=== PATIENT | male | born 1970 | race Hispanic/Latino ===

== ENCOUNTER 2016-11-25 00:28 | Inpatient (IN) | payer OTHER ==
--- NOTE | 2016-11-25 00:52 | ED PDOC ---
HPI: Psych/Substance Abuse Time Seen by Provider: 11/25/16 00:36 Chief Complaint (Nursing): Psychiatric Evaluation Chief Complaint (Provider): intentional overdose History Per: Patient, EMS Additional History Per: Patient, EMS Additional Complaint(s): 46 y/o male history of anxiety, depression, hypertension brought in by EMS for overdose. Patient states he drank alcohol and took 16 Trazodone tablets approx 1.5 hours before arrival to ED. Patient states he did this because "life sucks ". HPI limited due to patient current state of intoxication. Past Medical History Reviewed: Historical Data, Nursing Documentation, Vital Signs Vital Signs: Last Vital Signs Temp 97.2 F L 11/25/16 00:35 Pulse 118 H 11/25/16 00:35 Resp 18 11/25/16 00:35 BP 166/100 H 11/25/16 00:35 Pulse Ox 97 11/25/16 00:35 - Medical History PMH: Anxiety, HTN - Family History Family History: States: Unknown Family Hx - Home Medications Home Medications: Ambulatory Orders Medication Instructions Recorded Alprazolam [Xanax] 1 tab PO Q8 PRN #5 tab 01/30/15 ALPRAZolam [Xanax] 0.5 mg PO DAILY PRN #10 tab 10/03/15 - Allergies Allergies/Adverse Reactions: Allergies Allergy/AdvReac Type Severity Reaction Status Date / Time No Known Allergies Allergy Verified 01/30/15 15:46 Review of Systems Review Of Systems: ROS cannot be obtained secondary to pt's inabilty to answer questions. Physical Exam - Reviewed Nursing Documentation Reviewed: Yes Vital Signs Reviewed: Yes - Physical Exam Appears: Positive for: Well, Non-toxic, No Acute Distress Head Exam: Positive for: ATRAUMATIC, NORMAL INSPECTION, NORMOCEPHALIC Skin: Positive for: Normal Color Eye Exam: Positive for: EOMI, PERRL ENT: Positive for: Normal ENT Inspection Cardiovascular/Chest: Positive for: Regular Rate, Rhythm Respiratory: Positive for: Normal Breath Sounds Back: Positive for: Normal Inspection Extremity: Positive for: Normal ROM Neurologic/Psych: Positive for: Alert, Oriented, Other (slurred speech) - Laboratory Results Result Diagrams: 11/25/16 01:12 11/25/16 01:12 - ECG ECG: Positive for: Viewed By Me (reviewed by ED attending) ECG Rhythm: Positive for: Sinus Tachycardia (105bpm) O2 Sat by Pulse Oximetry: 97 Pulse Ox Interpretation: Normal - Radiology X-Ray: Viewed By Me X-Ray Interpretation: No Acute Disease ED OBSERVATION Date of observation admission: 11/25/16 Time of observation admission: 01:56 - Observation admission statement Patient is being placed in observation because:: intentional overdose - Goals of Observation Goals of observation are:: observation, supportive care - Progress Note Progress Note: 11/25/16 01:56 Patient sleeping; arousable to tactile stimuli 11/25/16 4:00 Patient sleeping; arousable to tactile stimuli. No distress. Disposition - Clinical Impression Clinical Impression: Suicide attempt by drug ingestion, Alcohol intoxication - Patient ED Disposition Is Patient to be Admitted: No - Disposition Disposition: Transfer of Care Disposition Time: 05:24 Condition: STABLE Patient Signed Over To: Valentin Murrieta Handoff Comments: pending re-eval, crisis eval
[2016-11-25 01:16] LABS: BASO # 0.1 K/uL (0.0-0.2); BASO % 1.1 % (0.0-2.0); EOS # 0.2 K/uL (0.0-0.7); EOS % 1.8 % (0.0-4.0); HEMATOCRIT 42.9 % (35.0-51.0); LYMPH # 2.9 K/uL (1.0-4.3); LYMPH % 28.9 % (20.0-40.0); MEAN CELL VOLUME 92.9 fl (80.0-94.0); MEAN CORPUSCULAR HEMOGLOBIN 32.1 pg (27.0-31.0); MEAN CORPUSCULAR HGB CONC 34.6 g/dL (33.0-37.0); MEAN PLATELET VOLUME 7.9 fl (7.2-11.7); MONO # 0.7 K/uL (0.0-0.8); MONO % 7.2 % (0.0-10.0); NEUT # 6.1 K/uL (1.8-7.0); NRBC % 0.1 % (0.0-0.0); RED CELL DISTRIBUTION WIDTH 13.2 % (11.5-14.5)
[2016-11-25 01:30] LABS: ALB/GLOB RATIO 1.3 (1.0-2.1); ALCOHOL SERUM 286 mg/dl (0-10); ALKALINE PHOSPHATASE 78 U/L (38-126); ALT/SGPT 37 U/L (21-72); AST/SGOT 35 U/L (17-59); BILIRUBIN,TOTAL 0.2 mg/dl (0.2-1.3); BLOOD UREA NITROGEN 11 mg/dl (9-20); CALCIUM 9.1 mg/dL (8.4-10.2); CARBON DIOXIDE 22 mmol/L (22-30); CHLORIDE 103 mmol/L (98-107); GFR AFRICAN-AMERICAN > 60; GLUCOSE,RANDOM 140 mg/dL (75-110); POTASSIUM 3.2 MMOL/L (3.6-5.0); SODIUM 141 mmol/l (132-148); TOTAL PROTEIN 7.3 G/DL (6.3-8.2)
[2016-11-25] MEDS ORDERED: Potassium Chloride 20 mEq ER Tab PO ONE ×2 (01:44→06:47)
[2016-11-25] MEDS ORDERED: Sodium Chloride 0.9% 1,000 ML IV STA (05:35)
--- NOTE | 2016-11-25 06:01 | ED PDOC ---
- Laboratory Results Result Diagrams: 11/25/16 01:12 11/25/16 01:12 - ECG O2 Sat by Pulse Oximetry: 97 Medical Decision Making Medical Decision Making: Case endorsed from Olman Khan PA-C at 0600 pending re-eval and crisis eval. Case endorsed to Dr. Franco at 0700 pending re-eval and crisis eval. Scribe Attestation: Documented by Vicki Cardenas acting as a scribe for Valentin Murrieta MD. Provider Scribe Attestation: All medical record entries made by the Scribe were at my direction and personally dictated by me. I have reviewed the chart and agree that the record accurately reflects my personal performance of the history, physical exam, medical decision making, and the department course for this patient. I have also personally directed, reviewed, and agree with the discharge instructions and disposition. Disposition - Clinical Impression Clinical Impression: Suicide attempt by drug ingestion, Alcohol intoxication - POA Present On Arrival: None - Disposition Disposition: Transfer of Care Disposition Time: 07:00 Condition: STABLE Patient Signed Over To: Adin Franco Handoff Comments: pending re-eval and crisis eval
--- NOTE | 2016-11-25 07:39 | CARD ---
APPROVED REPORT EKG Measurement Heart [id number] <Conclusion> Sinus tachycardia Otherwise normal ECG
--- NOTE | 2016-11-25 08:03 | ED PDOC ---
- Laboratory Results Result Diagrams: 11/25/16 01:12 11/25/16 01:12 - ECG O2 Sat by Pulse Oximetry: 96 Medical Decision Making Medical Decision Making: Time:0700 Patient signed out by Dr. Murrieta pending crisis, patient has been medically cleared by him. Time: 0850 Patient admitted to [facility] for depression by Dr.Trota Dacosta Attestation: Documented by Vanesa Bacon acting as a scribe for Adin Franco MD MD Scribe Attestation: All medical record entries made by the Scribe were at my direction and personally dictated by me. I have reviewed the chart and agree that the record accurately reflects my personal performance of the history, physical exam, medical decision making, and the department course for this patient. I have also personally directed, reviewed, and agree with the discharge instructions and disposition. Disposition - Clinical Impression Clinical Impression: Depression - POA Present On Arrival: None - Disposition Disposition: Admitted as In-Patient Disposition Time: 08:55 Condition: STABLE
[2016-11-25 10:01] VITALS: O2SAT 98
[2016-11-25 10:03] LABS: RBC URINE < 1 /hpf (0-3); URINE BILIRUBIN NEGATIVE (NEGATIVE); URINE BLOOD NEGATIVE (NEGATIVE); URINE COLOR YELLOW (YELLOW); URINE GLUCOSE (UA) NEG (Normal); URINE KETONE NEGATIVE (NEGATIVE); URINE LEUKOCYTE ESTERASE NEG Leu/uL (Negative); URINE PROTEIN NEGATIVE (NEGATIVE); URINE UROBILINOGEN 0.2-1.0 mg/dL (0.2-1.0); WBC URINE 1 /hpf (0-5)
--- NOTE | 2016-11-25 12:09 | RAD ---
HISTORY: Overdose. Technique: Single view portable erect @ 05:42. COMPARISON: 02/23/2016. FINDINGS: LUNGS: No active pulmonary disease. PLEURA: No significant pleural effusion identified, no pneumothorax apparent. CARDIOVASCULAR: Normal. OSSEOUS STRUCTURES: No significant abnormalities. VISUALIZED UPPER ABDOMEN: Normal. OTHER FINDINGS: None. IMPRESSION: No active disease. No significant interval change compared to the prior examination(s).
[2016-11-25] MEDS ORDERED: Magnesium Hydroxide Susp 30 ml UD PO PRN (12:31)
[2016-11-25] MEDS ORDERED: DiphenhydrAMINE 50 mg/ml Inj IM PRN (12:31)
[2016-11-25] MEDS ORDERED: Alum-Mag Hydrox-Simethicone Susp (30 mL) PO PRN (12:31)
--- NOTE | 2016-11-25 13:08 | PCM.PSYCH ---
Initial Psychiatric Evaluation - Initial Psychiatric Evaluation Type of Admission: Voluntary Legal Status: Capacity Chief Complaint (in patient's own words): i need to lie down Patient's Reaction to Hospitalization: ambivalent History of Present Illness and Precipitating Events: 46 yo male, alcohol dependence, history of bipolar 2 disorder. pt is presenting after an overdose of trazodone while intoxicated. he states he had argued with his and "i'm not sure why i did it...i guess i just wanted to prove something to her...i don't know." he reports he sees dr. ramirez in [place] and had a 3 month period of sobriety up until the middle of september. he indicates now he wants to change medications as he feels he may be depressed. he does not want any inpt rehab treatment. Current Medications: Active Medications Generic Name Dose Route Start Last Admin Trade Name Freq PRN Reason Stop Dose Admin Acetaminophen 650 mg 11/25/16 12:31 Tylenol 325mg Tab PO Q4 PRN Pain, moderate (4-7) Al Hydrox/Mg Hydrox/Simethicone 30 ml 11/25/16 12:31 Maalox Plus 30 Ml PO Q4 PRN Dyspepsia Diphenhydramine HCl 50 mg 11/25/16 12:31 Benadryl PO Q6 PRN Extrapyramidal Symptoms Diphenhydramine HCl 50 mg 11/25/16 12:31 Benadryl IM Q6 PRN Extrapyramidal S/S Unable PO Enalapril Maleate 10 mg 11/25/16 10:15 11/25/16 10:04 Vasotec PO 10 mg DAILY ABBY Administration Gabapentin 300 mg 11/25/16 17:00 Neurontin PO BIDHS ABBY Haloperidol 5 mg 11/25/16 12:31 Haldol PO Q4 PRN Agitation Haloperidol Lactate 5 mg 11/25/16 12:31 Haldol IM Q4 PRN Agitation, Unable to Take PO Lorazepam 1 mg 11/25/16 17:00 Ativan PO BIDHS ABBY Lorazepam 2 mg 11/25/16 12:31 Ativan PO Q4 PRN Anxiety/Agitation Lorazepam 2 mg 11/25/16 12:31 Ativan IM Q4 PRN Anxiety/Agitation,Unable PO Magnesium Hydroxide 30 ml 11/25/16 12:31 Milk Of Magnesia PO HS PRN Constipation Nicotine 1 patch 11/25/16 13:15 Nicoderm Cq TD DAILY ABBY Venlafaxine HCl 150 mg 11/25/16 12:45 Effexor Xr PO DAILY ABBY Past Psychiatric History - Past Psychiatric History Previous Treatment History: Inpatient Prior Professional Help: ? [facility], ? outpt substance abuse treatment. was at [facility] in History of Abuse: denies History of ETOH/Drug Use: smokes 1 pack of cigarettes daily, drinks alcohol daily- 2-3 pints daily. denies other substances use History of Family Illness: denies Pertinent Medical Hx (Current Medical&Sleep Prob, Allergies): Allergies Allergy/AdvReac Type Severity Reaction Status Date / Time No Known Allergies Allergy Verified 11/25/16 08:47 RX: Enalapril Maleate [Vasotec] 1 tab PO DAILY 11/25/16 RX: Gabapentin [Neurontin] 1 tab PO DAILY 11/25/16 Venlafaxine [Effexor XR] 1 tab PO DAILY 11/25/16 Review of Systems - Psychiatric Psychiatric: As Per [facility] Mental Status Examination - Personal Presentation Personal Presentation: Looks stated age - Affect Affect: Constricted - Motor Activity Motor Activity: Calm - Reliability in Providing Information Reliability in Providing Information: Fair - Speech Speech: Organized - Mood Mood: Depressed, Anxious - Formal Thought Process Formal Thought Process: No Impairment - Obsessions/Compulsions Obsessions: No Compulsions: No - Cognitive Functions Orientation: Person, Place, Situation, Time Sensorium: Alert Attention/Concentration: Attentive Abstract Thinking: [place] Estimate of Intelligence: Average Judgement: Intact, as evidence by: Insight regarding need for hospitalization Memory: Recent intact, as evidence by: Ability to recall events of the day, Remote intact, as evidenced by: Abilit to recall sig. life events - Risk Risk: Suicidal, Diminished functioning (denies any suicidal intent/plan) - Strength & Assets Inventory Strength & Assets Inventory: Intelligence DSM 5 DX - DSM 5 DSM 5 Diagnosis: alcohol dependence in withdrawal uncomplicated bipolar 2 disorder - Recommended/Plan of Treatment Treatment Recommendations and Plan of Treatment: admit to [facility] for safety and observation gather collateral information provide supportive therapy consult dr. mckeon for medical issues adjust medications-ativan for etoh withdrawal, restart effexor to prevent discontinuation problems. will discuss med changes with pt tomorrow disposition planning Projected ELOS: 3-5 days Prognosis: fair - Smoking Cessation Smoking Cessation Initiated: Yes
[2016-11-25] MEDS: Venlafaxine 150 mg ER Cap PO SCH (17:40)
--- NOTE | 2016-11-25 20:19 | CP.PCM.HP ---
History of Present Illness - History of Present Illness History of Present Illness: 46 yo with hx of Alcohol/ cocaine abuse Bipolar disorder HTN ED admitted for drug overdose with trazadone Present on Admission - Present on Admission Any Indicators Present on Admission: No Past Patient History - Past Social History Smoking Status: Heavy Smoker > 10 Cigarettes Daily - CARDIAC Hx Cardiac Disorders: No Hx Hypertension: Yes - PULMONARY Hx Tuberculosis: No - NEUROLOGICAL HX Cerebrovascular Accident: No Hx Seizures: No - HEMATOLOGICAL/ONCOLOGICAL Hx Cancer: No Hx Human Immunodeficiency Virus (HIV): No - GENITOURINARY/GYNECOLOGICAL Hx Sexually Transmitted Disorders: No - PSYCHIATRIC Hx Anxiety: Yes Hx Depression: Yes Hx Substance Use: Yes - SURGICAL HISTORY Hx Surgeries: Yes Hx Breast Biopsy: Yes Hx Orthopedic Surgery: Yes (RT ELBOW) - ANESTHESIA Hx Anesthesia: Yes Hx Anesthesia Reactions: No Meds Allergies/Adverse Reactions: Allergies Allergy/AdvReac Type Severity Reaction Status Date / Time No Known Allergies Allergy Verified 11/25/16 08:47 Physical Exam - Respiratory Exam Respiratory Exam: NORMAL BREATHING PATTERN - Cardiovascular Exam Cardiovascular Exam: REGULAR RHYTHM - GI/Abdominal Exam GI & Abdominal Exam: Normal Bowel Sounds Results - Vital Signs Recent Vital Signs: Last Vital Signs Temp 98.2 F 11/25/16 17:08 Pulse 103 H 11/25/16 17:08 Resp 20 11/25/16 17:08 BP 152/108 H 11/25/16 17:08 Pulse Ox 98 11/25/16 10:00 - Labs Result Diagrams: 11/25/16 01:12 11/25/16 01:12 Labs: Laboratory Results - last 24 hr 11/25/16 09:42 Urine Color Yellow Urine Clarity Clear Urine pH 6.0 Ur Specific [place] 1.011 Urine Protein Negative Urine Glucose (UA) Neg Urine Ketones Negative Urine Blood Negative Urine Nitrate Negative Urine Bilirubin Negative Urine Urobilinogen 0.2-1.0 Ur Leukocyte Esterase Neg Urine RBC (Auto) < 1 Urine Microscopic WBC 1 Urine Opiates Screen Negative Urine Methadone Screen Negative Ur Barbiturates Screen Negative Ur Phencyclidine Scrn Negative Ur Amphetamines Screen Negative U Benzodiazepines Scrn Negative U Oth Cocaine Metabols Negative U Cannabinoids Screen Negative Assessment & Plan - Assessment and Plan (Free Text) Assessment: Drug overdose with trazadone HX Alcohol/ cocaine abuse Bipolar disorder Psych Poison control called HTN ED IZAIAH Norvasc - Date & Time Date: 11/25/16 Time: 22:22
[2016-11-26] MEDS: Venlafaxine 150 mg ER Cap PO SCH (08:46)
[2016-11-26 08:57] LABS: BLOOD UREA NITROGEN 10 mg/dl (9-20); CALCIUM 8.9 mg/dL (8.4-10.2); CARBON DIOXIDE 28 mmol/L (22-30); CHLORIDE 106 mmol/L (98-107); GFR AFRICAN-AMERICAN > 60; GLUCOSE,RANDOM 88 mg/dL (75-110); POTASSIUM 3.9 MMOL/L (3.6-5.0); SODIUM 138 mmol/l (132-148)
[2016-11-26 09:29] LABS: T4 4.89 ug/dl (5.5-11.0)
[2016-11-26 09:43] LABS: THYROID STIMULATING HORMONE 0.85 mIU/ML (0.46-4.68)
--- NOTE | 2016-11-26 10:54 | PCM.PYCHPN ---
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 pt focused on complaining about , stating he needs to work and is minimizing his need to get treatment for alcohol dependence. he states his "would never let me off the hook" if he went to rehab and implies that he would not be able to afford his housing if he was not returning to work. he continues to deny he wanted to kill himself, but that he just wanted to "teach my a lesson." he is restless, tremulous. no confusion or agitation. Medication Change: Yes (lower effexor) Medical Record Reviewed: Yes Mental Status Examination - Cognitive Function Orientation: Person, Place, Situation, Time Attention: WNL Concentration: WNL Association: WNL Fund of Knowledge: WN Decription of patient's judgement and insights: fair - Mood Mood: Depressed, Anxious - Affect Affect: Constricted - Speech Speech: Appropriate - Formal Thought Process Formal Thought Process: No Impairment - Suicidal Ideation Suicidal Ideation: No Plan: denies suicidal thoughts - Homicidal Ideation Homicidal Ideation: No Goal/Treatment Plan - Goal/Treatment Plan Need for Continued Stay: Remain at risks for inpatient hospitalization, Discharge may exacerbated symptoms Progress Toward Problem(s) and Goals/Treatment Plan: alcohol dependence major depression recurrent will continue to treat with ativan for detox from alcohol lower effexor xr- pt feels dose is too high t/c changing to another antidepressant refer to outpatient substance abuse treatment/ outpaient therapy Estimated Date of D/C: 11/30/16 - Smoking Cessation Smoking Cessation Initiated: Yes
--- NOTE | 2016-11-26 20:53 | CP.PCM.PN ---
Subjective - Date & Time of Evaluation Date of Evaluation: 11/26/16 Time of Evaluation: 22:22 (Above noted) - Subjective Subjective: Above noted Doing better Objective - Vital Signs/Intake and Output Vital Signs (last 24 hours): Temp Pulse Resp BP Pulse Ox 97.7 F 87 18 160/90 H 98 11/26/16 10:00 11/26/16 10:00 11/26/16 10:00 11/26/16 10:00 11/25/16 10:00 - Medications Medications: Current Medications Acetaminophen (Tylenol 325mg Tab) 650 mg PO Q4 PRN PRN Reason: Pain, moderate (4-7) Al Hydrox/Mg Hydrox/Simethicone (Maalox Plus 30 Ml) 30 ml PO Q4 PRN PRN Reason: Dyspepsia Amlodipine Besylate (Norvasc) 5 mg PO DAILY [facility] Stop: 12/02/16 09:00 Last Admin: 11/26/16 08:45 Dose: 5 mg Diphenhydramine HCl (Benadryl) 50 mg PO Q6 PRN PRN Reason: Extrapyramidal Symptoms Diphenhydramine HCl (Benadryl) 50 mg IM Q6 PRN PRN Reason: Extrapyramidal S/S Unable PO Enalapril Maleate (Vasotec) 10 mg PO DAILY [facility] Last Admin: 11/26/16 08:46 Dose: 10 mg [facility]) [facility] Last Admin: 11/26/16 16:21 Dose: 300 mg Haloperidol (Haldol) 5 mg PO Q4 PRN PRN Reason: Agitation Haloperidol Lactate (Haldol) 5 mg IM Q4 PRN PRN Reason: Agitation, Unable to Take PO [facility]epam ([facility]ivan) [facility] Last Admin: 11/26/16 16:21 Dose: 1 mg Lorazepam (Ativan) 2 mg PO Q4 PRN PRN Reason: Anxiety/Agitation Lorazepam (Ativan) 2 mg IM Q4 PRN PRN Reason: Anxiety/Agitation,Unable PO Magnesium Hydroxide (Milk Of Magnesia) 30 ml PO HS PRN PRN Reason: Constipation Nicotine (Nicoderm Cq) 1 patch TD DAILY [facility] Last Admin: 11/26/16 08:45 Dose: 1 patch Venlafaxine HCl (Effexor Xr) 37.5 mg PO DAILY [facility] Venlafaxine HCl (Effexor Xr) 75 mg PO DAILY ABBY - Labs Labs: 11/26/16 08:31 - Respiratory Exam Respiratory Exam: NORMAL BREATHING PATTERN - Cardiovascular Exam Cardiovascular Exam: REGULAR RHYTHM - GI/Abdominal Exam GI & Abdominal Exam: Normal Bowel Sounds Assessment and Plan - Assessment and Plan (Free Text) Assessment: Drug overdose with trazadone HX Alcohol/ Cocaine abuse Bipolar disorder Psych Poison control called HTN (ED) on effexor Increase IZAIAH Norvasc
[2016-11-27] MEDS ORDERED: Venlafaxine 75 mg ER Cap PO SCH (09:00)
[2016-11-27] MEDS ORDERED: Venlafaxine 37.5 mg ER Cap PO SCH (09:00)
[2016-11-27 09:21] VITALS: TEMP 97.3
--- NOTE | 2016-11-27 12:33 | PCM.PYCHDC ---
Mental Status Examination - Mental Status Examination Orientation: Person, Place, Situation, Time Memory: Intact Mood: Anxious Affect: Broad Speech: Appropriate Attention: WNL Concentration: WNL Association: WNL Fund of Knowledge: WNL Formal Thought Process: No Impairment Description of patient's judgement and insight: fair Psychotic Thoughts and Behaviors: denies a/v hallucinations Suicidal Ideation: No Current Homicidal Ideation?: No Plan: pt denies any suicidal or homicidal thoughts/plan or intent Discharge Summary - Discharge Note Reason for Hospitalization: pt took an overdose of trazodone while intoxicated Psychiatric History (includes Medical, Family, Personal Hx): history of alcohol dependence Laboratory Data: Abnormal Lab Results 11/26/16 08:31 Hemoglobin A1c 5.7 RPR Nonreactive Consultations:: List each consultation separately and include: 1. Reason for request. 2. Findings. 3. Follow-up Consultations: followed by dr. mckeon Summary of Hospital Course include:: 1. Description of specific treatment plan utilized for patients during their course of treatmen. 2. Summarize the time- course for resolution of acute symptoms and/or regressed behaviors. 3. Describe issues identified and worked on during hospitalization. 4. Describe medication utilized. 5. Describe medical problems identified and treated. 6. Reassessment of suicide risk Summary of Hospital Course: 46 yo male, alcohol dependence, history of bipolar 2 disorder. pt is presenting after an overdose of trazodone while intoxicated. he states he had argued with his and "i'm not sure why i did it...i guess i just wanted to prove something to her...i don't know." he reports he sees dr. ramirez in [place] and had a 3 month period of sobriety up until the middle of september. he indicates now he wants to change medications as he feels he may be depressed. he does not want any inpt rehab treatment. pt was admitted to [facility] and oriented to the unit. pt was seen by his pcp, dr. mckeon. he was started on ativan to prevent alcohol withdrawal complications. he was started on his norvasc and started on effexor. the dose of effexor was lowered as did not find it was effective and he also has a history of htn. pt has a psychiatrist in the community and pt is refusing to stay in the hospital. pt states he only took the medicine to "teach my a lesson" and states he has no intention to harm himself. the patient signed a 48 hour notice. we discussed the risks of leaving the hospital- untreated alcohol withdrawal which could result in confusion/seizures and other life threatening conditions. the benefits of staying- treating depression, htn and preventing withdrawal complications- were discussed with pt. he signed out against medical advice after this discussion. dr. mckeon was aware of pt's elevated blood pressure. pt was denying suicidal or homicidal thoughts at the time of discharge. - Final Diagnosis (DSM 5) Condition upon Discharge: STABLE DSM 5: alcohol dependence major depression recurrent Disposition: AGAINST MEDICAL ADVICE Follow-up Treatment Plan: pt left against medical advice pt has outpatient appointments pt to call 911 if any suicidal or homicidal thoughts pt to start attending AA meetings - Smoking Cessation Smoking Cessation Medication prescribed: No Reason for not providing: declined - Antipsychotic Medications Pt discharged on 2 or more routine antipsychotic medications: No
[2016-11-27 14:24] VITALS: RESP 20
[2016-11-27 14:28] VITALS: BP 160/98; PULSE 100
--- NOTE | 2016-11-27 19:20 | CP.PCM.PN ---
Subjective - Date & Time of Evaluation Date of Evaluation: 11/27/16 Time of Evaluation: 22:22 - Subjective Subjective: Above noted Objective - Vital Signs/Intake and Output Vital Signs (last 24 hours): Temp Pulse Resp BP Pulse Ox 97.3 F L 100 H 20 160/98 H 98 11/27/16 09:21 11/27/16 14:27 11/27/16 14:27 11/27/16 14:27 11/25/16 10:00 - Labs Labs: 11/26/16 08:31 Assessment and Plan - Assessment and Plan (Free Text) Assessment: Drug overdose with trazadone HX Alcohol/ Cocaine abuse Bipolar disorder Psych Poison control called HTN (ED) on effexor Increase IZAIAH Norvasc
== END 2016-11-27 15:09 | disposition left against medical advice (07) | DRG 885 ==
LOC: H.ER 00:28 → H.EROBSV 01:55 → H.ERHOLD 08:56 → OBSVTOIN 08:56 → H.PSYCH 12:20
PROVIDERS: ADMIT Psychiatry & Neurology Psychiatry; ATTEND Psychiatry & Neurology Psychiatry
PROC: HZ59ZZZ Individual Psychotherapy for Substance Abuse Treatment, Supportive (ICD-10-PCS; principal; 2016-11-25)
DX: F33.9 Major depressive disorder, recurrent, unspecified (principal); I10 Essential (primary) hypertension; T43.212A Poisoning by selective serotonin and norepinephrine reuptake inhibitors, intentional self-harm, initial encounter; Y92.9 Unspecified place or not applicable; F10.220 Alcohol dependence with intoxication, uncomplicated; Y90.8 Blood alcohol level of 240 mg/100 ml or more; F17.210 Nicotine dependence, cigarettes, uncomplicated

== ENCOUNTER 2017-06-04 21:50 | Observation (INO) | payer SELFPAY ==
[2017-06-04 21:58] VITALS: TEMP 98.3
[2017-06-04] MEDS ORDERED: DiphenhydrAMINE 50 mg/ml Inj IM STA (22:50)
[2017-06-04 22:52] LABS: HEMATOCRIT 45.7 % (35.0-51.0); MEAN CELL VOLUME 92.7 fl (80.0-94.0); MEAN CORPUSCULAR HEMOGLOBIN 31.4 pg (27.0-31.0); MEAN CORPUSCULAR HGB CONC 33.9 g/dL (33.0-37.0); RED CELL DISTRIBUTION WIDTH 13.2 % (11.5-14.5)
--- NOTE | 2017-06-04 22:58 | ED PDOC ---
HPI: Psych/Substance Abuse Time Seen by Provider: 06/04/17 21:56 Chief Complaint (Nursing): Psychiatric Evaluation Chief Complaint (Provider): Denies complaint History Per: Patient History/Exam Limitations: no limitations Additional Complaint(s): In ER patient denies complaints. States his his crazy and called police to bring him to the ER. PT denies drinking in ER but reported drinking alcohol to EMS. Pt has history of bipolar disorder. Pt is very agitated in ER. 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 Past Medical History Reviewed: Historical Data, Nursing Documentation, Vital Signs Vital Signs: Last Vital Signs Temp 98.3 F 06/04/17 21:53 Pulse 111 H 06/04/17 21:53 Resp 18 06/04/17 21:53 BP 201/122 H 06/04/17 21:53 Pulse Ox 100 06/04/17 21:53 - Medical History PMH: Anxiety, Depression, HTN Denies: Diabetes, Hepatitis, HIV, Seizures, Sexually Transmitted Disease - Surgical History Surgical History: No Surg Hx - Family History Family History: States: Unknown Family Hx - Living Arrangements Living Arrangements: With Family () - Social History Current smoker - smoking cessation education provided: No Alcohol: Occasional - Home Medications Home Medications: Ambulatory Orders Medication Instructions Recorded Enalapril Maleate [Vasotec] 1 tab PO DAILY 11/25/16 Gabapentin [Neurontin] 1 tab PO DAILY 11/25/16 Venlafaxine [Effexor XR] 1 tab PO DAILY 11/25/16 - Allergies Allergies/Adverse Reactions: Allergies Allergy/AdvReac Type Severity Reaction Status Date / Time No Known Allergies Allergy Verified 11/25/16 08:47 Review of Systems ROS Statement: Except As Marked, All Systems Reviewed And Found Negative Constitutional: Negative for: Fever, Chills Psych: Positive for: Anxiety. Negative for: Suicidal ideation Physical Exam - Reviewed Nursing Documentation Reviewed: Yes Vital Signs Reviewed: Yes - Physical Exam Appears: Positive for: Well, Non-toxic, No Acute Distress Head Exam: Positive for: ATRAUMATIC, NORMAL INSPECTION, NORMOCEPHALIC Skin: Positive for: Normal Color, Warm, DRY Eye Exam: Positive for: Normal appearance ENT: Positive for: Normal ENT Inspection Neck: Positive for: Normal, Painless ROM Cardiovascular/Chest: Positive for: Regular Rate, Rhythm Respiratory: Positive for: Normal Breath Sounds. Negative for: Accessory Muscle Use, Respiratory Distress Gastrointestinal/Abdominal: Positive for: Normal Exam, Bowel Sounds, Soft. Negative for: Tenderness Back: Positive for: Normal Inspection Extremity: Positive for: Normal ROM Neurologic/Psych: Positive for: Alert. Negative for: Mood/Affect (aggitated ) - Laboratory Results Result Diagrams: 06/04/17 22:45 06/04/17 22:45 - ECG O2 Sat by Pulse Oximetry: 100 Pulse Ox Interpretation: Normal Medical Decision Making Medical Decision Makin - Vital improved. Crisis evaluation completed. ED OBSERVATION Date of observation admission: 06/04/17 Time of observation admission: 23:33 - Observation admission statement Patient is being placed in observation because:: Alcohol abuse - Goals of Observation Goals of observation are:: Sobriety and evaluation by crisis. - Progress Note Progress Note: 06/04/17 23:33 Sleeping in bed. NAD. Pt on monitor. Vitals stable. Crisis was not able to see patient prior to sedation. 06/05/17 00:49 Sleeping. NAD. Restraints removed. Disposition - Clinical Impression Clinical Impression: Depression - Disposition Disposition: Routine/Home Disposition Time: 06:05 Condition: GOOD
[2017-06-04 23:14] LABS: ALB/GLOB RATIO 1.5 (1.0-2.1); ALCOHOL SERUM 226 mg/dl (0-10); ALKALINE PHOSPHATASE 66 U/L (38-126); ALT/SGPT 31 U/L (21-72); AST/SGOT 25 U/L (17-59); BILIRUBIN,TOTAL 0.5 mg/dl (0.2-1.3); BLOOD UREA NITROGEN 10 mg/dl (9-20); CALCIUM 9.4 mg/dL (8.4-10.2); CARBON DIOXIDE 22 mmol/L (22-30); CHLORIDE 109 mmol/L (98-107); GFR AFRICAN-AMERICAN > 60; GLUCOSE,RANDOM 85 mg/dL (75-110); POTASSIUM 3.8 MMOL/L (3.6-5.0); SODIUM 152 mmol/l (132-148); TOTAL PROTEIN 8.1 G/DL (6.3-8.2)
[2017-06-05 00:41] VITALS: PULSE 76; RESP 16
[2017-06-05 04:25] VITALS: BP 145/80
[2017-06-05 06:05] VITALS: O2SAT 100
== END 2017-06-04 23:01 | disposition home or self-care (01) ==
LOC: H.ER 21:50 → H.EROBSV 23:01
PROVIDERS: ADMIT Emergency Medicine; ATTEND Emergency Medicine
DX: F10.129 Alcohol abuse with intoxication, unspecified (principal); Y90.7 Blood alcohol level of 200-239 mg/100 ml; I10 Essential (primary) hypertension; F31.9 Bipolar disorder, unspecified; F41.9 Anxiety disorder, unspecified; Z78.1 Physical restraint status
CPT/HCPCS: 80053; 85027; 96372; 99284; G0378; G0480; J1200; J1630; J2060

== ENCOUNTER 2017-11-01 12:36 | Emergency (ER) | payer OTHER ==
[2017-11-01 12:40] VITALS: BMI 23.1
[2017-11-01 12:41] VITALS: RESP 16
--- NOTE | 2017-11-01 13:44 | RAD ---
PROCEDURE: CHEST RADIOGRAPH, 1 VIEW HISTORY: psych eval COMPARISON: Frontal chest radiograph 11/25/2016. FINDINGS: LUNGS: Diminished inspiratory volume is appreciated crowding of the bilateral basilar bronchovascular markings. No definitive infiltrate bilaterally. PLEURA: No pneumothorax or pleural fluid seen. CARDIOVASCULAR: Normal. OSSEOUS STRUCTURES: Old healed right 5th and 6th rib fractures are again noted anterolaterally. VISUALIZED UPPER ABDOMEN: Normal. OTHER FINDINGS: None. IMPRESSION: Diminished inspiratory volume with crowded bronchovascular markings noted at the bases. No definitive acute infiltrate or pleural effusion bilaterally.
--- NOTE | 2017-11-01 13:56 | ED PDOC ---
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 denies: Suicidal Plan, Other ( hallucinations) Additional Complaint(s): David Christiansen is a 46 year old male, with a past medical history of hypertension, anxiety and depression, who presents to the emergency department under PD custody for suicidal ideation. While on route to [facility], he mentioned he was suicidal and afraid to go to correction. Patient states he has never been in correction before and he would rather kill himself. He admits to drinking alcohol last night. He denies any homicidal ideation, visual or auditory hallucinations, trauma, fever, headache, dyspnea, vomiting, suicidal attempt or plan. No further medical complaints. PMD: None provided. Past Medical History Reviewed: Historical Data, Nursing Documentation, Vital Signs Vital Signs: Last Vital Signs Temp 97.9 F 11/01/17 12:40 Pulse 111 H 11/01/17 12:40 Resp 16 11/01/17 12:40 BP 132/94 H 11/01/17 12:54 Pulse Ox 97 11/01/17 12:40 - Medical History PMH: Anxiety, Depression, HTN Denies: Diabetes, Hepatitis, HIV, Seizures, Sexually Transmitted Disease - Surgical History Surgical History: No Surg Hx - Family History Family History: States: Unknown Family Hx - Home Medications Home Medications: Ambulatory Orders Medication Instructions Recorded Venlafaxine [Effexor XR] 1 tab PO DAILY 11/25/16 Gabapentin [Neurontin] 300 mg PO Q6 09/05/17 Propranolol [Inderal] 20 mg PO TID 09/05/17 cloNIDine [clonidine HCl] 0.1 mg PO TID 09/05/17 hydrALAZINE [Apresoline] 1 tab PO BID 09/05/17 Aspirin [Low Dose Aspirin EC] 81 mg PO DAILY #30 tablet. 09/12/17 Chlorthalidone [Hygroton] 25 mg PO DAILY #30 tab 09/12/17 Famotidine [Pepcid] 40 mg PO DAILY #30 tab 09/12/17 Gabapentin [Neurontin] 300 mg PO TID #90 cap 09/12/17 Mirtazapine [Remeron] 30 mg PO HS #30 tab 09/12/17 Multivitamin [Daily Torsten] 1 tab PO DAILY #30 tab 09/12/17 Nicotine [Nicotine Patch] 1 each TD DAILY #30 patch.[id number] 09/12/17 Potassium Chloride [K-Dur 20 mEq 20 meq PO DAILY #30 tab 09/12/17 ER Tab] Propranolol [Inderal] 20 mg PO TID #90 tab 09/12/17 Venlafaxine [Effexor XR] 150 mg PO DAILY #30 cer 09/12/17 cloNIDine [Catapres] 0.1 mg PO BID #60 tab 09/12/17 hydrALAZINE [Apresoline] 20 mg PO TID #90 tab 09/12/17 - Allergies Allergies/Adverse Reactions: Allergies Allergy/AdvReac Type Severity Reaction Status Date / Time No Known Allergies Allergy Verified 09/05/17 12:58 Review of Systems ROS Statement: Except As Marked, All Systems Reviewed And Found Negative Constitutional: Negative for: Fever Respiratory: Negative for: Shortness of Breath Gastrointestinal: Negative for: Vomiting Neurological: Negative for: Headache Psych: Positive for: Suicidal ideation (with no plan. No homicidal ideation. ). Negative for: Other (hallucinations. ) Physical Exam - Reviewed Nursing Documentation Reviewed: Yes Vital Signs Reviewed: Yes - Physical Exam Comments: GENERAL APPEARANCE: Patient is awake, alert, oriented x 3, in no acute distress. ETOH odor noted. Appears anxious. SKIN: Warm, dry; (-) cyanosis HEAD: (-) scalp swelling, (-) scalp tenderness. EYES: (-) conjunctival pallor, (-) scleral icterus, (-) nystagmus. ENMT: Mucous membranes moist. Airway patent: (-) stridor. NECK: (-) tenderness, (-) stiffness, (-) lymphadenopathy. CHEST AND RESPIRATORY: (-) rales, (-) rhonchi, (-) wheezes; breath sounds equal. ABDOMEN: Soft, (-) distention, (-) tenderness, (-) guarding. NEURO AND PSYCH: Mental status as above. Affect: Calm and cooperative. 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 Pupils equal and reactive; EOMI; (-) facial asymmetry; tongue and uvula midline. Strength and DTRs symmetric. - Laboratory Results Result Diagrams: 11/01/17 13:50 11/01/17 13:50 - ECG O2 Sat by Pulse Oximetry: 97 (RA) Pulse Ox Interpretation: Normal Medical Decision Making Medical Decision Making: Initial Impression: Psych evaluation Initial Plan: --EKG --Alcohol serum --CMP --Drug screen, urine --CBC w/ differential --1:1 Observation --Urinalysis --Reevaluation CXR : IMPRESSION: Diminished inspiratory volume with crowded bronchovascular markings noted at the bases. No definitive acute infiltrate or pleural effusion bilaterally. EKG: ST at 105 bpm, (-) acute ST changes, as read by DANELLE. Labs reviewed : wbc 14, etoh 162, UDS (+) cocaine, UA (-), rest of the labs wnl. Patient is medically cleared for crisis evaluation. VS : T 98.4 P 9 BP 140/85 R 16 O2sat 99%RA Patient is seen and evaluated by crisis. [facility] crisis evaluation, decision made for outpatient follow up as per Dr. Kumar with Dx of anxiety. ~ Scribe Attestation: Documented by Shelton Williamson, acting as a scribe for Jennifer Velasquez PA-C. Provider Scribe Attestation: All medical record entries made by the Scribe were at my direction and personally dictated by me. I have reviewed the chart and agree that the record accurately reflects my personal performance of the history, physical exam, medical decision making, and the department course for this patient. I have also personally directed, reviewed, and agree with the discharge instructions and disposition. Disposition - Clinical Impression Clinical Impression: Anxiety - Patient ED Disposition Is Patient to be Admitted: No Counseled Patient/Family Regarding: Studies Performed, Diagnosis, Need For Followup - Disposition Disposition: Routine/Home Disposition Time: 15:15 Condition: STABLE Additional Instructions: Thank you for letting us take care of you today. You were treated for anxiety. The emergency medical care you received today was directed at your acute symptoms. Return to the Emergency Department if your symptoms worsen, do not improve, or if you have any other problems. Please contact your doctor in 2 days for re-evaluation and follow up. Bring any paperwork you were given at discharge with you along with any medications you are taking to your follow up visit. Our treatment cannot replace ongoing medical care by a primary care provider (PCP) outside of the emergency department. Thank you for allowing the [facility] team to be part of your care today. Patient is medically and psychiatrically cleared for incarceration. 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
[2017-11-01 14:11] LABS: BASO # 0.1 K/uL (0.0-0.2); BASO % 0.7 % (0.0-2.0); EOS # 0.2 K/uL (0.0-0.7); EOS % 1.3 % (0.0-4.0); HEMOGLOBIN 15.5 g/dL (12.0-18.0); LYMPH # 2.9 K/uL (1.0-4.3); LYMPH % 20.4 % (20.0-40.0); MEAN CELL VOLUME 92.2 fl (80.0-94.0); MEAN CORPUSCULAR HGB CONC 33.6 g/dL (33.0-37.0); MONO # 0.9 K/uL (0.0-0.8); MONO % 6.1 % (0.0-10.0); NEUT # 10.3 K/uL (1.8-7.0); NEUT % 71.5 % (50.0-75.0); NRBC % 0.1 % (0.0-0.0); RBC 4.99 Mil/uL (4.40-5.90); RED CELL DISTRIBUTION WIDTH 15.9 % (11.5-14.5); WHITE BLOOD COUNT 14.4 K/uL (4.8-10.8)
[2017-11-01 14:18] LABS: ALB/GLOB RATIO 1.2 (1.0-2.1); ALBUMIN 4.3 g/dL (3.5-5.0); ALT/SGPT 33 U/L (21-72); AST/SGOT 32 U/L (17-59); BLOOD UREA NITROGEN 12 mg/dl (9-20); CALCIUM 8.9 mg/dL (8.4-10.2); GFR AFRICAN-AMERICAN > 60; GFR NON-AFRICAN AMERICAN > 60
[2017-11-01 14:20] LABS: URINE BILIRUBIN NEGATIVE (NEGATIVE); URINE BLOOD NEGATIVE (NEGATIVE); URINE CLARITY CLEAR (Clear); URINE COLOR YELLOW (YELLOW); URINE GLUCOSE (UA) NEG (Normal); URINE LEUKOCYTE ESTERASE NEG Leu/uL (Negative); URINE NITRATE NEGATIVE (NEGATIVE); URINE PROTEIN NEGATIVE (NEGATIVE); URINE UROBILINOGEN 0.2-1.0 mg/dL (0.2-1.0)
[2017-11-01 14:40] LABS: BARBITURATES, UR NEGATIVE (NEGATIVE); BENZODIAZEPINES, UR NEGATIVE (NEGATIVE); OPIATES, UR NEGATIVE (NEGATIVE); PHENCYCLIDINE, UR NEGATIVE (NEGATIVE)
[2017-11-01 16:11] VITALS: BP 140/85; PULSE 90; TEMP 98.4
[2017-11-01 16:18] VITALS: O2SAT 97
--- NOTE | 2017-11-01 19:06 | CARD ---
APPROVED REPORT EKG Measurement Heart [id number] <Conclusion> Sinus tachycardia Possible Left atrial enlargement Borderline ECG
== END 2017-11-01 16:11 ==
LOC: H.ER 12:36
DX: F41.9 Anxiety disorder, unspecified; F32.9 Major depressive disorder, single episode, unspecified; I10 Essential (primary) hypertension; Z79.82 Long term (current) use of aspirin